=== PATIENT | female | born 1970 | race Caucasian/White ===

== ENCOUNTER 2016-10-17 12:34 | Emergency (ER) | payer MEDICAID ==
[~2016-10-17] VITALS: Ht 170.2 cm; Wt 75.0 kg
[~2016-10-17 12:34] MED LIST: BACT800T5 PO; CLON0.2T PO; CLON1 PO; FIORIC PO; FLAG500T PO; LACT20SO4 PO; MORP30SU PO; PHEN100 PO; PROM25TA5 PO; PROT40TA PO; SPIR50TA21 PO; TOPR100T15 PO; ZOFR4TAB3 SL
[2016-10-17 12:36] VITALS: BP 178/97; PULSE 82; RESP 15; TEMP 98.2; O2SAT 98
--- NOTE | 2016-10-17 13:47 | PD ---
HPI Chief Complaint: Psychiatric Symptoms Time Seen by Provider: 13:25 Travel History International Travel<30 days: No Contact w/Intl Traveler<30days: Yes Name of Country Traveled to: mom who went to [facility] lives with her and had N/V/D Traveled to known affect area: No History of Present Illness HPI 46-year-old female presents for evaluation of possible parasitic infection. She reports that in August she ate a lump overall beef because she likes the taste of raw beef. She reports that over the past few months she believes that she has seen worms in her stool, in her mouth and in her eyes. She reports that there are white in color. She reports that she had an episode of emesis recently which she vomited "thousands of eggs." She reports occasional abdominal pain as well. She reports that she has been having diarrhea which she says is secondary to doing a stool cleansing. She has used over-the- counter pinworm treatment medication but symptoms have persisted. She has seen her primary care physician as well as an outside emergency room for evaluation of this issue. Her mother who is with her says that she has seen worms as well. She denies any thoughts of harming herself or anyone else. She denies any hallucinations, drug or alcohol use. No other complaints. PFSH Past Medical History Arthritis: Yes (RA AND FIBROMYALGIA) Asthma: No Autoimmune Disease: Yes Anxiety: Yes Depression: Yes Heart Rhythm Problems: No Cancer: Yes (CERVICAL CA) Cardiovascular Problems: Yes High Cholesterol: No Chest Pain: Yes Congestive Heart Failure: No Cirrhosis: Yes COPD: Yes Cerebrovascular Accident: Yes (TIA 12/2014) Diabetes: No Diminished Hearing: No Endocrine: No Fibromyalgia: Yes Gastrointestinal Disorders: Yes (GASTROPROESIS) GERD: Yes Genitourinary: Yes Headaches: No Hepatitis: Yes (HEPATITIS C ) Hiatal Hernia: No Heparin Induced Thrombocytopen: No Hypertension: Yes Immune Disorder: Yes (FIBROPMYALGIA, RHEUMATOID ARTHRITIS ) Implanted Vascular Access Dvce: No Medical other: No Musculoskeletal: Yes Neurologic: Yes (possibl seizure) Psychiatric: Yes Reproductive: Yes Respiratory: Yes (COPD) Migraines: No Pancreatitis: Yes Renal Failure: Yes Seizures: Yes Sickle Cell Disease: No Sleep Apnea: No Thyroid Disease: No Ulcer: No ?: Not Menopausal: Yes : 2 Para: 1 Miscarriage: 2 : 3 Past Surgical History Abdominal Surgery: Yes AICD: No Body Medical Devices: "CLIP" FOLLOWING CARMELA Cardiac Surgery: No Cholecystectomy: Yes Ear Surgery: No Endocrine Surgery: No Eye Surgery: No Genitourinary Surgery: No Gynecologic Surgery: Yes (HYSTERECTOMY ) Hysterectomy: Yes Joint Replacement: No Neurologic Surgery: No Oral Surgery: No Pacemaker: No Thoracic Surgery: No Other Surgery: Yes (BILATERAL CARPAL TUNNEL RELEASE) Social History Alcohol Use: No Tobacco Use: Yes (1/2 PPD) Substance Use: Yes (shoot pills) Allergies-Medications (Allergen,Severity, Reaction): Coded Allergies: Augmentin (Verified Allergy, Severe, 12/15/15) Compazine (Verified Allergy, Severe, JAWS LOCK UP, 12/15/15) Levaquin (Verified Allergy, Severe, 12/15/15) "GETS ALL MY DRUGS MESSED UP" Penicillin (Verified Allergy, Severe, ANAPHYLACTIC, 12/15/15) Reglan (Verified Allergy, Severe, JAWS LOCK UP, 12/15/15) Tetanus Toxoid (Verified Allergy, Severe, MUSCLES LOCKED UP, 12/15/15) Vancomycin (Verified Allergy, Severe, COULDN'T BREATH, 12/15/15) THROAT CLOSED; UNABLE TO SWALLOW Tylenol (Verified Adverse Reaction, Severe, CONTRAINDICATED DUE TO HEP C AND CIRROHSIS, 12/15/15) Reported Meds & Prescriptions Reported Meds & Active Scripts Active Zofran ODT (Ondansetron HCl) 4 Mg Tab 4 Mg SL Q6H PRN FOR NAUSEA/VOMITING Bactrim DS (Sulfamethoxazole-Trimethoprim DS) 1 Tab Tab 1 Tab PO BID 10 Days Flagyl (Metronidazole) 500 Mg Tab 500 Mg PO TID 3 Days Zofran ODT (Ondansetron HCl) 4 Mg Tab 4 Mg SL Q6H PRN FOR NAUSEA/VOMITING Reported Spironolactone 50 Mg Tab 50 Mg PO BID Toprol XL (Metoprolol Succinate) 100 Mg Roya 100 Mg PO DAILY Dilantin 100 Mg Kapseals (Phenytoin Sodium) 100 Mg Caper 100 Mg PO TID Phenergan 25 mg (Promethazine HCl) 25 Mg Tab 25 Mg PO Q6H PRN Klonopin (Clonazepam) 1 Mg Tab 1 Mg PO TID Lactulose 30 Ml Syrp 30 Ml PO DAILY PRN Fioricet Tab (Acetaminophen/Butalbital/Caffeine) 1 Tab Tab 1 Tab PO Q4-6H PRN Clonidine Hcl (Clonidine HCl) 0.2 Mg Tab 0.2 Mg PO PRN TAKE IF DIASTOLIC GREATER THAN 100 Protonix (Pantoprazole Sodium) 40 Mg Tab 40 Mg PO DAILY Msir (Morphine Sulfate) 30 Mg Tab 60 Mg PO TID Review of Systems Except as stated in HPI: all other systems reviewed are Neg Physical Exam Narrative GENERAL: Well-developed well-nourished female in no acute distress SKIN: Warm and dry. HEAD: Atraumatic. Normocephalic. EYES: Pupils equal and round reactive to light, no worms. No scleral icterus. No injection or drainage. ENT: No nasal bleeding or discharge. Mucous membranes pink and moist. NECK: Trachea midline. No JVD. CARDIOVASCULAR: Regular rate and rhythm. No murmur appreciated. RESPIRATORY: No accessory muscle use. Clear to auscultation. Breath sounds equal bilaterally. GASTROINTESTINAL: Abdomen soft, non-tender, nondistended. Hepatic and splenic margins not palpable. Rectal examination performed in the presence of a nurse: No obvious worms are noted. MUSCULOSKELETAL: No obvious deformities. No clubbing. No cyanosis. No edema. NEUROLOGICAL: Awake and alert. No obvious cranial nerve deficits. Motor grossly within normal limits. Normal speech. PSYCHIATRIC: Appropriate mood and affect; insight and judgment normal. Data Data Last Documented VS Vital Signs Date Time Temp Pulse Resp B/P Pulse Ox O2 Delivery O2 Flow Rate FiO2 10/17/16 12:36 98.2 82 15 178/97 98 Orders MDM Medical Decision Making Medical Screen Exam Complete: Yes Emergency Medical Condition: Yes Medical Record Reviewed: Yes Differential Diagnosis Delusions versus parasitic infection versus pinworms Narrative Course 46-year-old female presents for evaluation of possible widespread parasitic infection. She believes that she has seen worms in her stool, vomit, mouth, eyes as well as eggs. Physical examination is essentially unremarkable. Her symptoms could be secondary to delusional parasitosis versus parasitic infection. I offered to perform basic lab work and stool over and parasite test over the patient reports that she does not have to go to the bathroom right now and shortly after examination she was attempting to walk out the emergency room. I don't believe that this patient meets hernandez act criteria. The patient will be given a prescription for outpatient stool and parasite testing. She is stable for discharge. Diagnosis Primary Impression: Fear of parasites Referrals: [facility] Additional Instructions: Obtain outpatient stool ova and parasite testing as discussed. Follow up with your primary care physician or a different primary care physician such as [facility]. Return for any emergent medical conditions. Med/Other Pt SpecificInfo: No Change to Meds Disposition: DISCHARGE HOME Condition: Alek Santana Oct 17, 2016 13:47 Med/Other Pt SpecificInfo: No Change to Meds Disposition: DISCHARGE HOME Condition: Alek Santana Oct 17, 2016 13:47
== END 2016-10-17 14:52 | disposition home or self-care (01) ==
LOC: NEPD 12:34
DX: F40.218 Other animal type phobia (principal); F41.9 Anxiety disorder, unspecified; J44.9 Chronic obstructive pulmonary disease, unspecified; K21.9 Gastro-esophageal reflux disease without esophagitis
CPT/HCPCS: 99281

== ENCOUNTER 2016-12-29 11:34 | Emergency (ER) | payer MEDICAID ==
[~2016-12-29] VITALS: Ht 170.2 cm; Wt 75.0 kg
[2016-12-29 11:48] VITALS: BP 124/74; PULSE 78; RESP 19; TEMP 98.8; O2SAT 97
[2016-12-29] MEDS ORDERED: SODIUM CHLORIDE 0.9% FLUSH 10 ML FLUSH IV FLUSH PRN (12:30)
--- NOTE | 2016-12-29 12:30 | PD ---
HPI Chief Complaint: Abdominal Pain Time Seen by Provider: 12:19 Travel History International Travel<30 days: No Contact w/Intl Traveler<30days: No Traveled to known affect area: No History of Present Illness HPI 36 year-old female with history of remote CVA, seizure disorder, pancreatitis, anxiety, hepatitis C, presents to emergency department for evaluation of multiple genital complaints. 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 She states that she was seen and evaluated at [facility] and they told her that she has a cellulitis on her right buttock. She states to give her antibiotic for this. She is concerned about having bugs crawling in her mouth and a thrush infection. She is also reports abdominal pain and she believes that her liver is failing. She denies any recent illnesses, fever, chills. She has no other symptoms to report. PFSH Past Medical History Arthritis: Yes (RA AND FIBROMYALGIA) Asthma: No Autoimmune Disease: Yes Anxiety: Yes Depression: Yes Heart Rhythm Problems: No Cancer: Yes (CERVICAL CA) Cardiovascular Problems: Yes High Cholesterol: No Chest Pain: Yes Congestive Heart Failure: No Cirrhosis: Yes COPD: Yes Cerebrovascular Accident: Yes (TIA 12/2014) Diabetes: No Diminished Hearing: No Endocrine: No Fibromyalgia: Yes Gastrointestinal Disorders: Yes (GASTROPROESIS) GERD: Yes Genitourinary: Yes Headaches: No Hepatitis: Yes (HEPATITIS C ) Hiatal Hernia: No Heparin Induced Thrombocytopen: No Hypertension: Yes Immune Disorder: Yes (FIBROPMYALGIA, RHEUMATOID ARTHRITIS ) Implanted Vascular Access Dvce: No Musculoskeletal: Yes Neurologic: Yes (possibl seizure) Psychiatric: Yes Reproductive: Yes Respiratory: Yes (COPD) Migraines: No Pancreatitis: Yes Renal Failure: Yes Seizures: Yes Sickle Cell Disease: No Sleep Apnea: No Thyroid Disease: No Ulcer: No ?: Not Menopausal: Yes : 2 Para: 1 Miscarriage: 2 : 3 Past Surgical History Abdominal Surgery: Yes AICD: No Body Medical Devices: "CLIP" FOLLOWING CARMELA Cardiac Surgery: No Cholecystectomy: Yes Ear Surgery: No Endocrine Surgery: No Eye Surgery: No Genitourinary Surgery: No Gynecologic Surgery: Yes (HYSTERECTOMY ) Hysterectomy: Yes Joint Replacement: No Neurologic Surgery: No Oral Surgery: No Pacemaker: No Thoracic Surgery: No Other Surgery: Yes (BILATERAL CARPAL TUNNEL RELEASE) Social History Alcohol Use: No Tobacco Use: Yes (1/2 PPD) Substance Use: Yes (shoot pills) Allergies-Medications (Allergen,Severity, Reaction): Coded Allergies: amoxicillin (Unverified Allergy, Severe, 12/29/16) clavulanic acid (Unverified Allergy, Severe, 12/29/16) levofloxacin (Unverified Allergy, Severe, 12/29/16) "GETS ALL MY DRUGS MESSED UP" metoclopramide (Unverified Allergy, Severe, JAWS LOCK UP, 12/29/16) penicillin G (Unverified Allergy, Severe, ANAPHYLACTIC, 12/29/16) prochlorperazine (Unverified Allergy, Severe, JAWS LOCK UP, 12/29/16) tetanus toxoid, adsorbed (Unverified Allergy, Severe, MUSCLES LOCKED UP, 12/29/16) vancomycin (Unverified Allergy, Severe, COULDN'T BREATH, 12/29/16) THROAT CLOSED; UNABLE TO SWALLOW acetaminophen (Unverified Adverse Reaction, Severe, CONTRAINDICATED DUE TO HEP C AND CIRROHSIS, 12/29/16) Reported Meds & Prescriptions Reported Meds & Active Scripts Active Reported Fioricet (Lldgbsbgdn-Niyyarhxnizhv-Aljcivvj) 50-300-40 Mg Cap 1 Cap PO Q4H PRN Lactulose Liq (Lactulose) 10 Gm/15 Ml Soln 30 Ml PO BID PRN Senokot (Sennosides) 8.6 Mg Tab 8.6 Mg PO DAILY PRN Diphenhydramine (Diphenhydramine HCl) 25 Mg Tab 50 Mg PO Q6H PRN Clonidine (Clonidine HCl) 0.1 Mg Tab 0.1 Mg PO DAILY PRN Aldactone (Spironolactone) 50 Mg Tab 50 Mg PO DAILY Toprol XL (Metoprolol Succinate) 100 Mg Tab 100 Mg PO DAILY Pepcid (Famotidine) 40 Mg Tab 40 Mg PO DAILY Zofran (Ondansetron HCl) 4 Mg Tab 4 Mg PO Q6HR PRN Phenergan (Promethazine HCl) 25 Mg Tablet 25 Mg PO Q6H PRN Clonazepam 1 Mg Tab 1 Mg PO QID Morphine IR (Morphine Sulfate) 30 Mg Tab 60 Mg PO TID Morphine ER (Morphine Sulfate) 60 Mg Tab 60 Mg PO Q8H Review of Systems Except as stated in HPI: all other systems reviewed are Neg Physical Exam Narrative GENERAL: Well-nourished female patient ambulatory, with bizarre affect, but in no acute distress SKIN: Focused skin assessment warm/dry. HEAD: Atraumatic. Normocephalic. EYES: Pupils large and round. Reactive No scleral icterus. No injection or drainage. ENT: No nasal bleeding or discharge. Mucous membranes pink and moist. NECK: Trachea midline. No JVD. CARDIOVASCULAR: Regular rate and rhythm. No murmur appreciated. RESPIRATORY: No accessory muscle use. Clear to auscultation. Breath sounds equal bilaterally. GASTROINTESTINAL: Abdomen soft, rotund, nontender on stethoscope examination, however tenderness with palpation, inconsistent, and generalized. MUSCULOSKELETAL: No obvious deformities. No clubbing. No cyanosis. No edema. NEUROLOGICAL: Awake and alert. No obvious cranial nerve deficits. Motor grossly within normal limits. Normal speech. Data Data Last Documented VS Vital Signs Date Time Temp Pulse Resp B/P (MAP) Pulse Ox O2 Delivery O2 Flow Rate FiO2 12/29/16 15:35 12/29/16 15:00 75 17 97 Room Air 12/29/16 11:48 98.8 Orders Orders Complete Blood Count With Diff (12/29/16 12:30) Comprehensive Metabolic Panel (12/29/16 12:30) Lipase (12/29/16 12:30) Prothrombin Time / Inr (Pt) (12/29/16 12:30) Act Partial Throm Time (Ptt) (12/29/16 12:30) Urinalysis - C+S If Indicated (12/29/16 12:30) Iv Access Insert/Monitor (12/29/16 12:30) Ecg Monitoring (12/29/16 12:30) Oximetry (12/29/16 12:30) Sodium Chloride 0.9% Flush (Ns Flush) (12/29/16 12:30) Electrocardiogram (12/29/16 12:30) Ammonia (12/29/16 12:30) Ketorolac Inj (Toradol Inj) (12/29/16 13:45) Sodium Chlor 0.9% 1000 Ml Inj (Ns 1000 M (12/29/16 13:45) Ondansetron Inj (Zofran Inj) (12/29/16 13:45) Labs Laboratory Tests Test 12/29/16 12:45 12/29/16 13:30 White Blood Count 4.1 TH/MM3 Red Blood Count 4.78 MIL/MM3 Hemoglobin 10.5 GM/DL Hematocrit 33.4 % Mean Corpuscular Volume 69.8 FL Mean Corpuscular Hemoglobin 22.0 PG Mean Corpuscular Hemoglobin Concent 31.5 % Red Cell Distribution Width 14.7 % Platelet Count 122 TH/MM3 Mean Platelet Volume 10.3 FL Neutrophils (%) (Auto) 53.8 % Lymphocytes (%) (Auto) 34.0 % Monocytes (%) (Auto) 9.5 % Eosinophils (%) (Auto) 2.2 % Basophils (%) (Auto) 0.5 % Neutrophils # (Auto) 2.2 TH/MM3 Lymphocytes # (Auto) 1.4 TH/MM3 Monocytes # (Auto) 0.4 TH/MM3 Eosinophils # (Auto) 0.1 TH/MM3 Basophils # (Auto) 0.0 TH/MM3 CBC Comment DIFF FINAL Differential Comment Prothrombin Time 10.8 SEC Prothromb Time International Ratio 1.0 RATIO Activated Partial Thromboplast Time 28.6 SEC Blood Urea Nitrogen 3 MG/DL Creatinine 0.76 MG/DL Random Glucose 109 MG/DL Total Protein 7.5 GM/DL Albumin 2.8 GM/DL Calcium Level 8.8 MG/DL Alkaline Phosphatase 52 U/L Aspartate Amino Transf (AST/SGOT) 28 U/L Alanine Aminotransferase (ALT/SGPT) 23 U/L Total Bilirubin 0.2 MG/DL Sodium Level 140 MEQ/L Potassium Level 3.9 MEQ/L Chloride Level 104 MEQ/L Carbon Dioxide Level 29.3 MEQ/L Anion Gap 7 MEQ/L Estimat Glomerular Filtration Rate 82 ML/MIN Ammonia LESS THAN 10 MCMOL/L Lipase 110 U/L Urine Color LIGHT-YELLOW Urine Turbidity CLEAR Urine pH 5.0 Urine Specific Banks 1.005 Urine Protein NEG mg/dL Urine Glucose (UA) NEG mg/dL Urine Ketones NEG mg/dL Urine Occult Blood NEG Urine Nitrite NEG Urine Bilirubin NEG Urine Urobilinogen LESS THAN 2.0 MG/DL Urine Leukocyte Esterase TRACE Urine RBC 1 /hpf Urine WBC 2 /hpf Urine Squamous Epithelial Cells 1 /hpf Urine Hyaline Casts 2 /lpf Urine Mucus FEW /lpf Microscopic Urinalysis Comment CULT NOT INDICATED MDM Medical Decision Making Medical Screen Exam Complete: Yes Emergency Medical Condition: Yes Medical Record Reviewed: Yes Differential Diagnosis Pancreatitis versus gastritis versus indigestion versus chronic abdominal pain versus mood disorder versus personality disorder versus adjustment reaction disorder Narrative Course 46-year-old female presents to the emergency department for evaluation. Patient has very bizarre affect. She is insistent that she has forms all over her body inside and out. [facility] for concern that she may have worms and was treated empirically. Patient's abdomen is soft. It is inconsistently tender on exam. Laboratory Tests Test 12/29/16 12:45 12/29/16 13:30 White Blood Count 4.1 TH/MM3 Red Blood Count 4.78 MIL/MM3 Hemoglobin 10.5 GM/DL Hematocrit 33.4 % Mean Corpuscular Volume 69.8 FL Mean Corpuscular Hemoglobin 22.0 PG Mean Corpuscular Hemoglobin Concent 31.5 % Red Cell Distribution Width 14.7 % Platelet Count 122 TH/MM3 Mean Platelet Volume 10.3 FL Neutrophils (%) (Auto) 53.8 % Lymphocytes (%) (Auto) 34.0 % Monocytes (%) (Auto) 9.5 % Eosinophils (%) (Auto) 2.2 % Basophils (%) (Auto) 0.5 % Neutrophils # (Auto) 2.2 TH/MM3 Lymphocytes # (Auto) 1.4 TH/MM3 Monocytes # (Auto) 0.4 TH/MM3 Eosinophils # (Auto) 0.1 TH/MM3 Basophils # (Auto) 0.0 TH/MM3 CBC Comment DIFF FINAL Differential Comment Prothrombin Time 10.8 SEC Prothromb Time International Ratio 1.0 RATIO Activated Partial Thromboplast Time 28.6 SEC Blood Urea Nitrogen 3 MG/DL Creatinine 0.76 MG/DL Random Glucose 109 MG/DL Total Protein 7.5 GM/DL Albumin 2.8 GM/DL Calcium Level 8.8 MG/DL Alkaline Phosphatase 52 U/L Aspartate Amino Transf (AST/SGOT) 28 U/L Alanine Aminotransferase (ALT/SGPT) 23 U/L Total Bilirubin 0.2 MG/DL Sodium Level 140 MEQ/L Potassium Level 3.9 MEQ/L Chloride Level 104 MEQ/L Carbon Dioxide Level 29.3 MEQ/L Anion Gap 7 MEQ/L Estimat Glomerular Filtration Rate 82 ML/MIN Ammonia LESS THAN 10 MCMOL/L Lipase 110 U/L Urine Color LIGHT-YELLOW Urine Turbidity CLEAR Urine pH 5.0 Urine Specific Banks 1.005 Urine Protein NEG mg/dL Urine Glucose (UA) NEG mg/dL Urine Ketones NEG mg/dL Urine Occult Blood NEG Urine Nitrite NEG Urine Bilirubin NEG Urine Urobilinogen LESS THAN 2.0 MG/DL Urine Leukocyte Esterase TRACE Urine RBC 1 /hpf Urine WBC 2 /hpf Urine Squamous Epithelial Cells 1 /hpf Urine Hyaline Casts 2 /lpf Urine Mucus FEW /lpf Microscopic Urinalysis Comment CULT NOT INDICATED Lab work is without acute concern. 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 Patient agrees to return immediately with any acute worsening symptoms. Diagnosis Primary Impression: Abdominal pain Qualified Codes: R10.31 - Right lower quadrant pain Additional Impressions: History of cirrhosis of liver Fear of parasites Referrals: [facility] Primary Care Physician Patient Instructions: Abdominal Pain (ED), General Instructions Additional Instructions: Follow-up with your primary care provider Seek gastroenterology evaluation Return immediately with any acute worsening of symptoms Med/Other Pt SpecificInfo: No Change to Meds Disposition: 01 DISCHARGE HOME Condition: Stable Aishwarya Salomon Dec 29, 2016 12:30
[2016-12-29 12:48] VITALS: O2SAT 98
[2016-12-29 13:04] LABS: AUTOMATED NEUTROPHIL # 2.2 TH/MM3 (1.8-7.7); BASOPHIL % 0.5 % (0.0-2.0); EOSINOPHIL # 0.1 TH/MM3 (0-0.4); EOSINOPHIL % 2.2 % (0.0-4.0); HEMATOCRIT 33.4 % (35.0-46.0); HEMO FLAGS DIFF FINAL; LYMPHOCYTE # 1.4 TH/MM3 (1.0-4.8); MEAN CELL VOLUME 69.8 FL (80.0-100.0); MEAN CORPUSCULAR HGB CONC 31.5 % (32.0-36.0); MONO % 9.5 % (0.0-8.0); NEUT % 53.8 % (16.0-70.0); PLATELET COUNT 122 TH/MM3 (150-450); RED BLOOD COUNT 4.78 MIL/MM3 (4.00-5.30); RED CELL DISTRIBUTION WIDTH 14.7 % (11.6-17.2); WHITE BLOOD COUNT 4.1 TH/MM3 (4.0-11.0)
[2016-12-29 13:14] LABS: APTT (PATIENT) 28.6 SEC (24.3-30.1); PROTHROMBIN TIME - PATIENT 10.8 SEC (9.8-11.6)
[2016-12-29 13:20] LABS: ALT (GPT) 23 U/L (10-53); ANION GAP 7 MEQ/L (5-15); AST (GOT) 28 U/L (15-37); BICARBONATE 29.3 MEQ/L (21.0-32.0); CHLORIDE 104 MEQ/L (98-107); GLOMERULAR FILTRATION RATE 82 ML/MIN (>89); POTASSIUM 3.9 MEQ/L (3.5-5.1); SODIUM (NA) 140 MEQ/L (136-145)
[2016-12-29 13:21] LABS: ALKALINE PHOSPHATASE 52 U/L (45-117); TOTAL BILIRUBIN ADULT 0.2 MG/DL (0.2-1.0)
[2016-12-29 13:22] LABS: BLOOD UREA NITROGEN 3 MG/DL (7-18)
[2016-12-29] MEDS ORDERED: MSIR30 PO (13:23)
[2016-12-29] MEDS ORDERED: SENO8.6T5 PO (13:23)
[2016-12-29] MEDS ORDERED: ZOFR4TAB PO (13:23)
[2016-12-29] MEDS ORDERED: DIPH25TA2 PO (13:23)
[2016-12-29] MEDS ORDERED: PROM25TA10 PO (13:23)
[2016-12-29] MEDS ORDERED: ALDA50TA2 PO (13:23)
[2016-12-29] MEDS ORDERED: CLON0.1T PO (13:23)
[2016-12-29] MEDS ORDERED: FAMO1TAB73 PO (13:23)
[2016-12-29] MEDS ORDERED: TOPR100T PO (13:23)
[2016-12-29] MEDS ORDERED: LACT10SO PO (13:23)
[2016-12-29] MEDS ORDERED: MORP1TAB26 PO (13:23)
[2016-12-29] MEDS ORDERED: CLON1TAB PO (13:23)
[2016-12-29] MEDS ORDERED: BUTA1CAP PO (13:23)
[2016-12-29] MEDS ORDERED: KETOROLAC TROMETHAMINE 30 MG/ML (IVP) VIAL IV PUSH ONE (13:45)
[2016-12-29] MEDS ORDERED: SODIUM CHLOR 0.9% 1000 ML INJ 1,000 ML IV ONE (13:45)
[2016-12-29] MEDS ORDERED: ONDANSETRON HCL 4 MG/2 ML VIAL IV PUSH ONE (13:45)
[2016-12-29 13:52] LABS: BLOOD, URINE NEG (NEG); COMMENT (UR) CULT NOT INDICATED; CULTURE IF INDICATED CULT NOT INDICATED; GLUCOSE,URINE NEG (NEG); HYALINE CAST, URINE 2 /lpf (RARE); KETONE, URINE NEG (NEG); MUCUS URINE FEW /lpf (OCC); NITRITE,URINE NEG (NEG); SQUAMOUS EPITHELIAL CELL URINE 1 /hpf (0-5); URINE COLOR LIGHT-YELLOW (YELLW/STRAW)
[2016-12-29 15:00] VITALS: BP 120/72; PULSE 75; RESP 17; O2SAT 97
--- NOTE | 2016-12-30 08:39 | EKG ---
Date Performed: 12/29/2016 Time Performed: 12:55:58 PTAGE: 46 years EKG: Sinus rhythm NORMAL ECG PREVIOUS TRACING : 12/16/2015 02.45 No significant change from previous tracing noted. DOCTOR: Pedro Luis Vega Interpretating Date/Time 12/30/2016 08:37:47
== END 2016-12-29 15:37 | disposition home or self-care (01) ==
LOC: NEPC 11:34
DX: R10.31 Right lower quadrant pain (principal); K74.60 Unspecified cirrhosis of liver; F40.218 Other animal type phobia; I10 Essential (primary) hypertension; F17.200 Nicotine dependence, unspecified, uncomplicated; Z87.39 Personal history of other diseases of the musculoskeletal system and connective tissue; Z86.2 Personal history of diseases of the blood and blood-forming organs and certain disorders involving the immune mechanism; Z86.59 Personal history of other mental and behavioral disorders; Z85.41 Personal history of malignant neoplasm of cervix uteri; Z86.79 Personal history of other diseases of the circulatory system; Z87.09 Personal history of other diseases of the respiratory system; Z87.19 Personal history of other diseases of the digestive system; Z87.448 Personal history of other diseases of urinary system; Z86.19 Personal history of other infectious and parasitic diseases; Z86.69 Personal history of other diseases of the nervous system and sense organs
CPT/HCPCS: 80053; 81001; 82140; 83690; 85025; 85610; 85730; 93005; 96361; 96374; 96375; 99284; J1885; J2405; J7030

== ENCOUNTER 2017-10-28 18:08 | Emergency (ER) | payer MEDICAID ==
[~2017-10-28] VITALS: Ht 167.6 cm; Wt 72.5 kg
[~2017-10-28 18:08] MED LIST changes: +ALDA50TA2 PO; -BACT800T5 PO; +BUTA1CAP PO; +CLON0.1T PO; -CLON0.2T PO; -CLON1 PO; +CLON1TAB PO; +DIPH25TA2 PO; +FAMO1TAB73 PO; -FIORIC PO; -FLAG500T PO; +LACT10SO PO; -LACT20SO4 PO; +MORP1TAB26 PO; -MORP30SU PO; +MSIR30 PO; -PHEN100 PO; +PROM25TA10 PO; -PROM25TA5 PO; -PROT40TA PO; +SENO8.6T5 PO; -SPIR50TA21 PO; +TOPR100T PO; -TOPR100T15 PO; +ZOFR4TAB PO; -ZOFR4TAB3 SL
[2017-10-28 18:15] VITALS: BP 157/94; PULSE 117; RESP 16; TEMP 98.8; O2SAT 100
--- NOTE | 2017-10-28 20:52 | PD ---
HPI Chief Complaint: Abdominal Pain Time Seen by Provider: 20:26 Travel History International Travel<30 days: No Contact w/Intl Traveler<30days: No Traveled to known affect area: No History of Present Illness HPI 47-year-old female that presents to the ED for evaluation of multiple complaints. Main complaint appears to be related to her mouth and having tongue swelling. Per patient has had this for about 2 months. Per patient he feels like there is something in her tongue that gets swelling. Per patient it comes and goes. Per patient is not as bad now. Per patient when she was in triage she cannot open her mouth. She does have a history of depression hepatitis C as well as per patient cirrhosis and is currently on the transplant list at [facility] where she gets most of her care for the liver. She follows with a pain management and takes multiple pain medications. Per patient she is having a lot of abdominal pain. However this does not appear to be the main complaint. She also complains of multiple lesions to her arms and legs and she attributes this to infection from cellulitis and "parasites ". She states that she has been trying to follow an infectious disease doctor and per patient she has 7 different referrals to different infectious disease doctors but nobody will see her because of her insurance. She does have multiple allergies to different medications. She denies any chest pain or shortness of breath at this time. She states that her lymph nodes seem to be inflamed and she believes that she has an infection. She currently states her pain in her belly is 6 out of 10. Denies any bowel movement or urinary issues at this time. Of note patient has been here for similar in the past. PFSH Past Medical History Arthritis: Yes (RA AND FIBROMYALGIA) Asthma: No Autoimmune Disease: Yes Anxiety: Yes Depression: Yes Heart Rhythm Problems: No Cancer: Yes (CERVICAL CA) Cardiovascular Problems: Yes High Cholesterol: No Chest Pain: Yes Congestive Heart Failure: No Cirrhosis: Yes COPD: Yes Cerebrovascular Accident: Yes (TIA 12/2014) Diabetes: No Diminished Hearing: No Endocrine: No Fibromyalgia: Yes Gastrointestinal Disorders: Yes (GASTROPROESIS) GERD: Yes Genitourinary: Yes Headaches: No Hepatitis: Yes (HEPATITIS C ) Hiatal Hernia: No Heparin Induced Thrombocytopen: No Hypertension: Yes Immune Disorder: Yes (FIBROPMYALGIA, RHEUMATOID ARTHRITIS ) Implanted Vascular Access Dvce: No Medical other: No Musculoskeletal: Yes Neurologic: Yes (possibl seizure) Psychiatric: Yes Reproductive: Yes Respiratory: Yes (COPD) Migraines: No Pancreatitis: Yes Renal Failure: Yes Seizures: Yes (reported seizure today) Sickle Cell Disease: No Sleep Apnea: No Thyroid Disease: No Ulcer: No ?: Not Menopausal: Yes : 2 Para: 1 Miscarriage: 2 : 3 Past Surgical History Abdominal Surgery: Yes AICD: No Body Medical Devices: "CLIP" FOLLOWING [facility] Cardiac Surgery: No Cholecystectomy: Yes Ear Surgery: No Endocrine Surgery: No Eye Surgery: No Genitourinary Surgery: No Gynecologic Surgery: Yes (HYSTERECTOMY ) Hysterectomy: Yes Joint Replacement: No Neurologic Surgery: No Oral Surgery: No Pacemaker: No Thoracic Surgery: No Other Surgery: Yes (BILATERAL CARPAL TUNNEL RELEASE) Social History Alcohol Use: No Tobacco Use: Yes (/ PPD) Substance Use: Yes (hx of injection drugs) Allergies-Medications (Allergen,Severity, Reaction): Coded Allergies: amoxicillin (Unverified Allergy, Severe, 10/28/17) clavulanic acid (Unverified Allergy, Severe, 10/28/17) levofloxacin (Unverified Allergy, Severe, 10/28/17) "GETS ALL MY DRUGS MESSED UP" metoclopramide (Unverified Allergy, Severe, JAWS LOCK UP, 10/28/17) penicillin G (Unverified Allergy, Severe, ANAPHYLACTIC, 10/28/17) prochlorperazine (Unverified Allergy, Severe, JAWS LOCK UP, 10/28/17) tetanus toxoid, adsorbed (Unverified Allergy, Severe, MUSCLES LOCKED UP, 10/28/17) vancomycin (Unverified Allergy, Severe, COULDN'T BREATH, 10/28/17) THROAT CLOSED; UNABLE TO SWALLOW acetaminophen (Unverified Adverse Reaction, Severe, CONTRAINDICATED DUE TO HEP C AND CIRROHSIS, 10/28/17) Reported Meds & Prescriptions Reported Meds & Active Scripts Active Reported Fioricet (Fwrwmfpkuw-Kscujsvtcklzb-Mvcwpeow) 50-300-40 Mg Cap 1 Cap PO Q4H PRN Lactulose Liq (Lactulose) 10 Gm/15 Ml Soln 30 Ml PO BID PRN Senokot (Sennosides) 8.6 Mg Tab 8.6 Mg PO DAILY PRN Diphenhydramine (Diphenhydramine HCl) 25 Mg Tab 50 Mg PO Q6H PRN Clonidine (Clonidine HCl) 0.1 Mg Tab 0.1 Mg PO DAILY PRN Aldactone (Spironolactone) 50 Mg Tab 50 Mg PO DAILY Toprol XL (Metoprolol Succinate) 100 Mg Tab 100 Mg PO DAILY Pepcid (Famotidine) 40 Mg Tab 40 Mg PO DAILY Zofran (Ondansetron HCl) 4 Mg Tab 4 Mg PO Q6HR PRN Phenergan (Promethazine HCl) 25 Mg Tablet 25 Mg PO Q6H PRN Clonazepam 1 Mg Tab 1 Mg PO QID Morphine IR (Morphine Sulfate) 30 Mg Tab 60 Mg PO TID Morphine ER (Morphine Sulfate) 60 Mg Tab 60 Mg PO Q8H Review of Systems Except as stated in HPI: all other systems reviewed are Neg Physical Exam Narrative GENERAL: SKIN: Warm and dry. HEAD: Atraumatic. Normocephalic. EYES: Pupils equal and round 4 mm reactive to light and accommodation. No scleral icterus. No injection or drainage. ENT: No nasal bleeding or discharge. Mucous membranes pink and moist. Tongue is midline. No uvula deviation. She does have some white film to the tongue itself. Likely thrush. NECK: Trachea midline. No JVD. CARDIOVASCULAR: Regular rate and rhythm. No murmurs, S3, S4. RESPIRATORY: No accessory muscle use. Clear to auscultation. Breath sounds equal bilaterally. GASTROINTESTINAL: Abdomen soft, non-tender, slightly distended. Hepatic and splenic margins not palpable. MUSCULOSKELETAL: Extremities without clubbing, cyanosis, or edema. No obvious deformities. Full range of motion of the upper and lower extremities bilaterally. 2+ pulses bilaterally. NEUROLOGICAL: Awake and alert. No obvious cranial nerve deficits. Motor grossly within normal limits. Five out of 5 muscle strength in the arms and legs. Normal speech. PSYCHIATRIC: Appropriate mood and affect; insight and judgment normal. Data Data Last Documented VS Vital Signs Date Time Temp Pulse Resp B/P (MAP) Pulse Ox O2 Delivery O2 Flow Rate FiO2 10/28/17 18:15 98.8 117 16 157/94 (115) 100 Orders Orders Complete Blood Count With Diff (10/28/17 20:34) Comprehensive Metabolic Panel (10/28/17 20:34) Blood Culture (10/28/17 20:34) Lipase (10/28/17 20:34) Urinalysis - C+S If Indicated (10/28/17 20:34) Magnesium (Mg) (10/28/17 20:34) Ammonia (10/28/17 20:34) Thyroid Stimulating Hormone (10/28/17 20:34) Ct Brain W/O Iv Contrast(Rout) (10/28/17 20:34) Iv Access Insert/Monitor (10/28/17 20:34) Ecg Monitoring (10/28/17 20:34) Oximetry (10/28/17 20:34) Ct Soft Tiss Neck W Iv Cont (10/28/17 ) Iohexol 350 Inj (Omnipaque 350 Inj) (10/28/17 22:19) Labs Laboratory Tests Test 10/28/17 20:45 10/28/17 20:53 Urine Color Straw Urine Turbidity CLEAR Urine pH 5.0 Urine Specific [place] 1.004 Urine Protein NEG mg/dL Urine Glucose (UA) NEG mg/dL Urine Ketones NEG mg/dL Urine Occult Blood SMALL Urine Nitrite NEG Urine Bilirubin NEG Urine Urobilinogen LESS THAN 2 mg/dL Urine Leukocyte Esterase NEG Urine RBC 2 /hpf Urine WBC LESS THAN 1 /hpf Urine Bacteria OCC /hpf Microscopic Urinalysis Comment CULT NOT INDICATED White Blood Count 4.7 TH/MM3 Red Blood Count 5.66 MIL/MM3 Hemoglobin 12.6 GM/DL Hematocrit 39.1 % Mean Corpuscular Volume 69.1 FL Mean Corpuscular Hemoglobin 22.3 PG Mean Corpuscular Hemoglobin Concent 32.3 % Red Cell Distribution Width 14.6 % Platelet Count 118 TH/MM3 Mean Platelet Volume 9.5 FL Neutrophils (%) (Auto) 59.8 % Lymphocytes (%) (Auto) 31.1 % Monocytes (%) (Auto) 7.7 % Eosinophils (%) (Auto) 0.7 % Basophils (%) (Auto) 0.7 % Neutrophils # (Auto) 2.8 TH/MM3 Lymphocytes # (Auto) 1.5 TH/MM3 Monocytes # (Auto) 0.4 TH/MM3 Eosinophils # (Auto) 0.0 TH/MM3 Basophils # (Auto) 0.0 TH/MM3 CBC Comment DIFF FINAL Differential Comment Blood Urea Nitrogen 9 MG/DL Creatinine 0.97 MG/DL Random Glucose 88 MG/DL Total Protein 9.4 GM/DL Albumin 4.4 GM/DL Calcium Level 9.4 MG/DL Magnesium Level 2.0 MG/DL Alkaline Phosphatase 62 U/L Aspartate Amino Transf (AST/SGOT) 28 U/L Alanine Aminotransferase (ALT/SGPT) 31 U/L Total Bilirubin 0.4 MG/DL Sodium Level 138 MEQ/L Potassium Level 4.1 MEQ/L Chloride Level 102 MEQ/L Carbon Dioxide Level 26.8 MEQ/L Anion Gap 9 MEQ/L Estimat Glomerular Filtration Rate 62 ML/MIN Ammonia LESS THAN 10 MCMOL/L Lipase 166 U/L Thyroid Stimulating Hormone 3rd Gen 0.335 uIU/ML MDM Medical Decision Making Medical Screen Exam Complete: Yes Emergency Medical Condition: Yes Medical Record Reviewed: Yes Differential Diagnosis Tongue infection versus cellulitis versus obstruction versus sepsis versus cirrhosis versus intractable pain versus mass Narrative Course 47-year-old female that presents to the ED for evaluation of multiple complaints. Patient was properly examined and was found to have signs and symptoms of unclear etiology. I do not suspect any acute disease at this time but her main complaint does appear to be the mild. Her tongue does not appear to be overly swollen. She does appear to have some small bite-like lesions to her tongue and appears to be more possible thrush with what appears to be possible canker sore. Because of her complaints and her history cannot rule out acute disease. I do recommend some basic labs and imaging. The running of this note CTs have not been read yet. Case will be sent up to my attending pending disposition and plan. I suspect that she will likely be discharged as her physical exam is very reassuring. Her blood work so far has been okay with no sign of acute disease. Ricky Camejo Oct 28, 2017 20:52
[2017-10-28 21:06] LABS: AUTOMATED NEUTROPHIL # 2.8 TH/MM3 (1.8-7.7); BASOPHIL % 0.7 % (0.0-2.0); EOSINOPHIL % 0.7 % (0.0-4.0); HEMATOCRIT 39.1 % (35.0-46.0); HEMOGLOBIN 12.6 GM/DL (11.6-15.3); LYMPH % 31.1 % (9.0-44.0); LYMPHOCYTE # 1.5 TH/MM3 (1.0-4.8); MEAN CELL VOLUME 69.1 FL (80.0-100.0); MEAN CORPUSCULAR HEMOGLOBIN 22.3 PG (27.0-34.0); MEAN CORPUSCULAR HGB CONC 32.3 % (32.0-36.0); MEAN PLATELET VOLUME 9.5 FL (7.0-11.0); MONO % 7.7 % (0.0-8.0); MONOCYTE # 0.4 TH/MM3 (0-0.9); NEUT % 59.8 % (16.0-70.0); PLATELET COUNT 118 TH/MM3 (150-450); RED BLOOD COUNT 5.66 MIL/MM3 (4.00-5.30); RED CELL DISTRIBUTION WIDTH 14.6 % (11.6-17.2); WHITE BLOOD COUNT 4.7 TH/MM3 (4.0-11.0)
[2017-10-28 21:31] LABS: BACTERIA, URINE OCC /hpf; BILIRUBIN, URINE NEG (NEG); BLOOD, URINE SMALL (NEG); GLUCOSE,URINE NEG (NEG); KETONE, URINE NEG (NEG); NITRITE,URINE NEG (NEG); URINE COLOR Straw (YELLW/STRAW); URINE LEUKOCYTE ESTERASE NEG (NEG)
[2017-10-28 21:32] LABS: ALBUMIN 4.4 GM/DL (3.4-5.0); AST (GOT) 28 U/L (15-37); BICARBONATE 26.8 MEQ/L (21.0-32.0); BLOOD UREA NITROGEN 9 MG/DL (7-18); CALCIUM 9.4 MG/DL (8.5-10.1); CHLORIDE 102 MEQ/L (98-107); CREATININE 0.97 MG/DL (0.50-1.00); GLOMERULAR FILTRATION RATE 62 ML/MIN (>89); GLUCOSE,RANDOM 88 MG/DL (74-106); SODIUM (NA) 138 MEQ/L (136-145)
[2017-10-28 21:42] LABS: ALKALINE PHOSPHATASE 62 U/L (45-117); ALT (GPT) 31 U/L (10-53); TOTAL BILIRUBIN ADULT 0.4 MG/DL (0.2-1.0); TOTAL PROTEIN 9.4 GM/DL (6.4-8.2)
[2017-10-28] MEDS ORDERED: IOHEXOL 350 MG/ML 10 ML VIAL (for RAD DIAG) IVCONTRAST ONE (22:19)
--- NOTE | 2017-10-28 22:38 | RADRPT ---
EXAM DATE: 10/28/2017 10:07 PM EDT AGE/SEX: 47 years / Female INDICATIONS: Syncope. CLINICAL DATA: This is the patient's initial encounter. Patient reports that signs and symptoms have been present for 1 day and indicates a pain score of 4/10. MEDICAL/SURGICAL HISTORY: Cardiovascular disease. Hypertension. Cirrhosis. Carcinoma Cholecyste ctomy. Hysterectomy. RADIATION DOSE: 31.64 CTDI (mGy) [place] [facility] [place]. . TECHNIQUE: CT of the head without contrast. Using automated exposure control and adjustment of the mA and/or kV according to patient size, radiation dose was kept as low as reasonably achievable to ob tain optimal diagnostic quality images. DICOM format image data is available electronically for revi ew and comparison. FINDINGS: There is no evidence of acute cortical infarction, acute hemorrhage, mass effect or midline shift. Bi frontal atrophy is present. Posterior fossa structures are unremarkable. CONCLUSION: No evidence of acute intracranial pathology. No masses are identified. Bifrontal atrophy Electronically signed by: Hussain Ayala MD 10/28/2017 10:37 PM EDT
--- NOTE | 2017-10-28 22:41 | RADRPT ---
EXAM DATE: 10/28/2017 10:17 PM EDT AGE/SEX: 47 years / Female INDICATIONS: Swelling and pain. CLINICAL DATA: This is the patient's initial encounter. Patient reports that signs and symptoms have been present for 1 day and indicates a pain score of 4/10. MEDICAL/SURGICAL HISTORY: Cardiovascular disease. Hypertension. Cirrhosis. Carcinoma. Hysterect shakir. Cholecystectomy. RADIATION DOSE: 15.38 CTDI (mGy) COMPARISON: No prior exams available for comparison. TECHNIQUE: Helical acquisition was performed using a multirow detector CT scanner during the adminis tration of 55 ml Omnipaque 350 (iohexol) nonionic water-soluble contrast as a single exam dose. Usi ng automated exposure control and adjustment of the mA and/or kV according to patient size, radiation dose was kept as low as reasonably achievable to obtain optimal diagnostic quality images. DICOM fo rmat image data is available electronically for review and comparison. FINDINGS: Examination of the skull base demonstrates no evidence of deep infiltrating mucosal lesion. The oroph arynx, hypopharynx, glottic and subglottic airway demonstrate no abnormality. The submandibular gland s are prominent bilaterally but no discrete mass or stone is identified. Nonspecific rib 2 adenopathy is present bilaterally. The parotid glands appear normal. The thyroid gland demonstrates no abnormal ity. Lung apices are unremarkable CONCLUSION: 1. Mild nonspecific generalized enlargement of the submandibular glands bilaterally without evidence of stone or mass. Electronically signed by: Hussain Ayala MD 10/28/2017 10:39 PM EDT
--- NOTE | 2017-10-28 23:46 | PD ---
Physical Exam Narrative GENERAL: 47 y/o female in no apparent distress SKIN: Focused skin assessment warm/dry. HEAD: Atraumatic. Normocephalic. EYES: Pupils equal and round. No scleral icterus. No injection or drainage. ENT: No nasal bleeding or discharge. Mucous membranes pink and moist. NECK: Trachea midline CARDIOVASCULAR: Regular rate and rhythm. RESPIRATORY: No accessory muscle use. no increased effort MUSCULOSKELETAL: No obvious deformities. No clubbing. No cyanosis. NEUROLOGICAL: Awake and alert. No obvious cranial nerve deficits. Motor grossly within normal limits. Normal speech. PSYCHIATRIC: Appropriate mood and affect; insight and judgment normal. Data Data Last Documented VS Vital Signs Date Time Temp Pulse Resp B/P (MAP) Pulse Ox O2 Delivery O2 Flow Rate FiO2 10/28/17 23:46 10/28/17 18:15 98.8 117 16 100 Orders Orders Complete Blood Count With Diff (10/28/17 20:34) Comprehensive Metabolic Panel (10/28/17 20:34) Blood Culture (10/28/17 20:34) Lipase (10/28/17 20:34) Urinalysis - C+S If Indicated (10/28/17 20:34) Magnesium (Mg) (10/28/17 20:34) Ammonia (10/28/17 20:34) Thyroid Stimulating Hormone (10/28/17 20:34) Ct Brain W/O Iv Contrast(Rout) (10/28/17 20:34) Iv Access Insert/Monitor (10/28/17 20:34) Ecg Monitoring (10/28/17 20:34) Oximetry (10/28/17 20:34) Ct Soft Tiss Neck W Iv Cont (10/28/17 ) Iohexol 350 Inj (Omnipaque 350 Inj) (10/28/17 22:19) Ed Discharge Order (10/28/17 23:43) Labs Laboratory Tests Test 10/28/17 20:45 10/28/17 20:53 Urine Color Straw Urine Turbidity CLEAR Urine pH 5.0 Urine Specific [place] 1.004 Urine Protein NEG mg/dL Urine Glucose (UA) NEG mg/dL Urine Ketones NEG mg/dL Urine Occult Blood SMALL Urine Nitrite NEG Urine Bilirubin NEG Urine Urobilinogen LESS THAN 2 mg/dL Urine Leukocyte Esterase NEG Urine RBC 2 /hpf Urine WBC LESS THAN 1 /hpf Urine Bacteria OCC /hpf Microscopic Urinalysis Comment CULT NOT INDICATED White Blood Count 4.7 TH/MM3 Red Blood Count 5.66 MIL/MM3 Hemoglobin 12.6 GM/DL Hematocrit 39.1 % Mean Corpuscular Volume 69.1 FL Mean Corpuscular Hemoglobin 22.3 PG Mean Corpuscular Hemoglobin Concent 32.3 % Red Cell Distribution Width 14.6 % Platelet Count 118 TH/MM3 Mean Platelet Volume 9.5 FL Neutrophils (%) (Auto) 59.8 % Lymphocytes (%) (Auto) 31.1 % Monocytes (%) (Auto) 7.7 % Eosinophils (%) (Auto) 0.7 % Basophils (%) (Auto) 0.7 % Neutrophils # (Auto) 2.8 TH/MM3 Lymphocytes # (Auto) 1.5 TH/MM3 Monocytes # (Auto) 0.4 TH/MM3 Eosinophils # (Auto) 0.0 TH/MM3 Basophils # (Auto) 0.0 TH/MM3 CBC Comment DIFF FINAL Differential Comment Blood Urea Nitrogen 9 MG/DL Creatinine 0.97 MG/DL Random Glucose 88 MG/DL Total Protein 9.4 GM/DL Albumin 4.4 GM/DL Calcium Level 9.4 MG/DL Magnesium Level 2.0 MG/DL Alkaline Phosphatase 62 U/L Aspartate Amino Transf (AST/SGOT) 28 U/L Alanine Aminotransferase (ALT/SGPT) 31 U/L Total Bilirubin 0.4 MG/DL Sodium Level 138 MEQ/L Potassium Level 4.1 MEQ/L Chloride Level 102 MEQ/L Carbon Dioxide Level 26.8 MEQ/L Anion Gap 9 MEQ/L Estimat Glomerular Filtration Rate 62 ML/MIN Ammonia LESS THAN 10 MCMOL/L Lipase 166 U/L Thyroid Stimulating Hormone 3rd Gen 0.335 uIU/ML [facility] Supervised Visit with TOM: Yes Interpretation(s) Last [address] 10/28/172033 Signed Impressions: CONCLUSION: No evidence of acute intracranial pathology. No masses are identified. Bifront al atrophy Neck CT 10/28/17 0000 Signed Impressions: CONCLUSION: 1. Mild nonspecific generalized enlargement of the submandibular glands bilate rally without evidence of stone or mass. Narrative Course I, Dr. baer, have reviewed the advance practice practitioner's documentation and am in agreement, met with the patient face to face, made the diagnosis, and the medical decision making was done by me. *My assessment and Findings: 47-year-old female with multiple complaints over 2 months. She states she feels like her tongue gets intermittently swollen. No significant swelling now. CT with mild nonspecific gland swelling without stone. Lab work without emergent findings. Patient agrees to follow with her primary care physician. I got called away before I could complete return instructions and review them further with her and she elected to leave without this or her discharge instructions. Diagnosis Primary Impression: Abdominal pain Qualified Codes: R10.84 - Generalized abdominal pain Additional Impression: Mild tongue swelling Patient Instructions: General Instructions Med/Other Pt SpecificInfo: No Change to Meds Disposition: 01 DISCHARGE HOME Condition: Stable Shila Baer MD Oct 28, 2017 23:45
== END 2017-10-29 00:27 | disposition home or self-care (01) ==
LOC: NEPE 18:08
DX: R10.84 Generalized abdominal pain (principal); F17.200 Nicotine dependence, unspecified, uncomplicated; B19.20 Unspecified viral hepatitis C without hepatic coma; M79.7 Fibromyalgia; Z85.41 Personal history of malignant neoplasm of cervix uteri; Z79.899 Other long term (current) drug therapy
CPT/HCPCS: 70450; 70491; 80053; 81001; 82140; 83690; 83735; 84443; 85025; 87040; 99284; Q9967

== ENCOUNTER 2017-11-28 08:42 | Observation (INO) ==
--- NOTE | 2017-11-28 09:50 | CT ---
EXAM DATE: 11/28/2017 9:47 AM EDT AGE/SEX: 47 years / Female INDICATIONS: Cephalgia today. CLINICAL DATA: This is the patient's initial encounter. Patient reports that signs and symptoms have been present for 1 day and indicates a pain score of 10/10. MEDICAL/SURGICAL HISTORY: Stroke. Hypertension. Hepatitis C. encephalopathy None. RADIATION DOSE: 35.01 CTDI (mGy) [place] [facility]28/[place]. . TECHNIQUE: CT of the head without contrast. Using automated exposure control and adjustment of the mA and/or kV according to patient size, radiation dose was kept as low as reasonably achievable to ob tain optimal diagnostic quality images. DICOM format image data is available electronically for revi ew and comparison. FINDINGS: Cerebrum: The ventricles are normal for age. No evidence of midline shift, mass lesion, hemorrhage or acute infarction. No extraaxial fluid collections are seen. Posterior Fossa: The cerebellum and brainstem are intact. The 4th ventricle is midline. The cerebe llopontine angle is unremarkable. Extracranial: The visualized portion of the orbits is intact. Skull: The calvaria is intact. No evidence of skull fracture. CONCLUSION: 1. Stable negative noncontrast head CT Electronically signed by: Feng Tracy MD 11/28/2017 9:49 AM EDT
[2017-11-28 09:53] LABS: Baso % (Auto) 0.9 % (0.0-2.0); Eos # (Auto) 0.2 th/mm3 (0.0-0.4); Eos % (Auto) 3.3 % (0.0-4.0); Hematocrit 40.9 % (35.0-46.0); Hemoglobin 13.5 gm/dL (11.6-15.3); Lymph # (Auto) 2.4 th/mm3 (1.0-4.8); Lymph % (Auto) 53.5 % (9.0-44.0); Mean Corpuscular Hemoglobin 23.3 pg (27.0-34.0); Mean Corpuscular Volume 70.5 fL (80.0-100.0); Mono # (Auto) 0.3 th/mm3 (0.0-0.9); Mono % (Auto) 6.4 % (0.0-8.0); Neut # (Auto) 1.6 th/mm3 (1.8-7.7); Neut % (Auto) 35.9 % (16.0-70.0); Platelet Count 127 th/mm3 (150-450); Red Cell Distribution Width 15.8 % (11.6-17.2); White Blood Count 4.6 th/mm3 (4.0-11.0)
[2017-11-28 10:03] LABS: INR 1.1 Ratio; Prothrombin Time 10.9 sec (9.8-11.6)
[2017-11-28 10:05] LABS: Activated Partial Thrombo Time 25.9 sec (24.3-30.1)
[2017-11-28 10:17] LABS: Anion Gap 2 meq/L (5-15); Blood Urea Nitrogen 8 mg/dL (7-18); Carbon Dioxide 31.2 meq/L (21.0-32.0); Chloride 103 meq/L (98-107); Glomerular Filtration Rate 59 mL/min (>89); Glucose,Random 134 mg/dL (74-106); Sodium 136 meq/L (136-145)
[2017-11-28 10:18] LABS: Potassium 4.6 meq/L (3.5-5.1)
[2017-11-28] MEDS ORDERED: LORazepam 1 MG Tablet PO ONE (10:21)
--- NOTE | 2017-11-28 10:21 | XR ---
EXAM DATE: 11/28/2017 10:17 AM EDT AGE/SEX: 47 years / Female INDICATIONS: . Anterior chest pain for two days, pain and swelling left face and neck, short of chelsy th CLINICAL DATA: This is the patient's initial encounter. Patient reports that signs and symptoms have been present for 2 days and indicates a pain score of 10/10. MEDICAL/SURGICAL HISTORY: Cirrhosis. Hepatitis C. Hypertension. Liver failure, renal failure , blood clots, cardiovascular disease, scoliosis, coma x 6 Cholecystectomy. Hysterectomy. COMPARISON: [facility], XR CHEST PA AND LAT, 04/22/2017. . FINDINGS: PA and lateral views of the chest demonstrate the lungs to be symmetrically aerated without evidence of mass, infiltrate or effusion. The cardiomediastinal contours are unremarkable. Osseous structures are intact. CONCLUSION: No acute cardiopulmonary disease. Electronically signed by: Feng Tracy MD 11/28/2017 10:19 AM EDT
[2017-11-28 14:08] LABS: Creatine Kinase 43 U/L (26-192)
--- NOTE | 2017-11-28 14:29 | P.HPCA ---
History of Present Illness Primary Care Physician: Heather Crum Chief Complaint: Chest pain and headache History of Present Illness: 47 year old female with history of IVDA, RA, and hypertension presents to ER with multiple complaints, including chest pain, headache, muscle cramps, and worry about reported GI infection of parasites x2 years without treatment. Reports last week seen and evaluated at [facility] for chest pain and vomiting blood. States given Protonix and discharged home. Reports while at , heart would have "long pauses," but was discharged home without her heart being further evaluated. Vomiting blood has resolved. Onset chest pain "at least one week." Location left anterior chest and left inframammary area. Characteristics vary between squeezing, sharp, or dull pain. Dull pain constant, whereas the squeezing and sharp pain varies from seconds to minutes. Intermittent radiation to left shoulder and left upper arm. Associated symptoms include nausea, dyspnea, and diaphoresis. Occasionally certain movements make pain worse. Discomfort not affected by deep breathing. No known precipitating or relieving factors. Chest discomfort noticed more in evening hours. Onset of headache x1 week. History of migraines. No current headache. Discomfort occurs evening hours, location left frontal side and behind left eye. Characterized as sharp, shooting pain. No eye pain or vision lost. Intermittent green "floaters" during headaches. No nausea or other associated symptoms with headache. Concerned "neck artery blocked" and would like to have that evaluated. Also, developed left cheek and left side neck small bumps after receiving CT exam last week during ER visit and concerned headache and skin irritation related. Third complaint is bilateral feet cramping, severely, mostly in evening hours. Reports history of GI parasites x2 years, without treatment, stating "my primary doctor won't give me a referral to infectious disease doctor" and is worried history of IVDA and above symptoms all related to poor self care and parasites. Past cardiac testing-None. Family history noncontributory for early onset cardiovascular disease. - Diagnosis (1) Chest pain, atypical (2) H/O: hypertension (3) H/O intravenous drug use in remission (4) Tobacco abuse (5) H/O migraine (6) H/O anxiety disorder (7) Other chronic pain Review of Systems Constitutional: Reports fatigue, Reports lack of energy, Denies anorexia, Denies body ache(s), Denies chills, Denies fever(s) Eyes: Denies blurry vision, Denies change in vision, Denies double vision, Denies loss of vision, Denies pain Cardiovascular: Reports chest pain, Reports fast heart rate, Denies generalized swelling, Denies irregular heart rhythm, Denies leg sores, Denies leg swelling, Denies lightheadedness Comments: As stated above. Respiratory: Reports shortness of breath, Denies cough, Denies coughing up blood , Denies excessive phlegm production, Denies pain on inspiration, Denies pain with cough Gastrointestinal: Denies abdominal pain, Denies change in bowel habits, Denies change in stools, Denies difficulty swallowing, Denies vomiting, Denies vomiting blood Genitourinary: Denies abnormal vaginal bleeding Comments: History of hysterectomy Musculoskeletal: Reports neck pain, Denies muscle weakness, Denies numbness, Denies tingling Comments: as stated above Skin/Breast: Reports sores Comments: left side neck and left cheek small, painful, non drainage, non itchy bumps x1 week. Neurologic: Denies loss of vision, Denies seizure-like activity Psychiatric: Reports anxiety, Reports confusion, Reports difficulty concentrating, Denies change in appetite Hematologic/Lymphatic: Denies easy bleeding, Denies easy bruising PMFSH - History History Provided By: Patient - Medical History Medical History: Medical History (Last Updated 11/28/17 @ 14:52 by KEVIN Mkceon) Acute on chronic pancreatitis Anxiety Arthritis, rheumatoid COPD (chronic obstructive pulmonary disease) CVA (cerebral vascular accident) Cirrhosis Dyslexia Encephalopathy H/O: hysterectomy HTN (hypertension) Hx of hepatitis C Sinus pause TMJ (dislocation of temporomandibular joint) - Tobacco History Tobacco Use In Past 30 Days: Yes Smoking Status: Former smoker Tobacco Type: Cigarettes Packs Per Day: 0.5 (Decreased from 2 packs/day) Years Smoked: 30 - Alcohol History How Often Do You Have a Drink Containing Alcohol: Monthly or less - Substance Use History Substance History: Past History - Substance Use Type Heroin Status: Early Remission Route Used: Intravenously Last Used: few months ago Crack/Cocaine Type: cocaine Route Used: Inhalation Last Used: few months ago - Travel History History of Recent Travel: No Recent Travel in the [place] Within the Last 8 Weeks: No Recent Travel Out of the Country Within the Last 8 Weeks: No - Immunization History Tetanus Immunization: >5 Years Hx Influenza Vaccine This Season: No Medications and Allergies Active Medications: Active Medications Aspirin (Aspirin) 325 mg PO DAILY MAURILIO Nitroglycerin (Nitrostat Sl) 0.4 mg SL Q5M PRN PRN Reason: CHEST PAIN Sodium Chloride (Ns Flush) 2 ml IV.FLUSH UNSCH PRN PRN Reason: FLUSH AFTER USING IV ACCESS Sodium Chloride (Ns Flush) 2 ml IV.FLUSH BID MAURILIO Sodium Chloride (Ns Flush) 2 ml IV.FLUSH PRN PRN PRN Reason: FLUSH AFTER USING IV ACCESS Allergies Allergy/AdvReac Type Severity Reaction Status Date / Time amoxicillin Allergy Severe Unverified 10/28/17 20:36 clavulanic acid Allergy Severe Unverified 10/28/17 20:36 levofloxacin Allergy Severe Unverified 10/28/17 20:36 metoclopramide Allergy Severe JAWS LOCK Unverified 10/28/17 20:36 UP penicillin G Allergy Severe ANAPHYLACTI Unverified 10/28/17 20:36 C prochlorperazine Allergy Severe JAWS LOCK Unverified 10/28/17 20:36 UP tetanus toxoid, adsorbed Allergy Severe MUSCLES Unverified 10/28/17 20:36 LOCKED UP vancomycin Allergy Severe COULDN'T Unverified 10/28/17 20:36 BREATH acetaminophen AdvReac Severe CONTRAINDICATED Unverified 10/28/17 20:36 DUE TO HEP C AND CIRROHSIS Home Medications Medication Instructions Recorded Confirmed Type amlodipine [Norvasc] 5 mg PO HS 11/28/17 11/28/17 History clonazepam [Klonopin] 1 mg PO QID 11/28/17 11/28/17 History methadone [Dolophine] 10 mg PO TID PRN 11/28/17 11/28/17 History metoprolol succinate [Toprol XL] 100 mg PO DAILY 11/28/17 11/28/17 History morphine 250 mg PO TID 11/28/17 11/28/17 History ondansetron HCl [Zofran] 4 mg PO PRN 11/28/17 11/28/17 History promethazine [Phenergan] 25 mg IM PRN 11/28/17 11/28/17 History spironolactone 50 mg PO DAILY 11/28/17 11/28/17 History Exam Vital signs: Vital Signs 11/28/17 08:44 11/28/17 08:58 11/28/17 11:56 Temperature 98.6 F Pulse Rate 105 H 88 88 Respiratory Rate 18 18 Blood Pressure 192/107 H 176/100 H Pulse Oximetry 93 L 99 98 11/28/17 13:00 Temperature Pulse Rate 63 Respiratory Rate 18 Blood Pressure 137/79 Pulse Oximetry 97 Intake & Output 11/27/17 11/28/17 11/28/17 18:59 06:59 18:59 Weight 72.575 kg - Constitutional no acute distress, cooperative Comments: female who appears older than stated age in no acute distress, sleeping upon entering room. - Routine HEENT Exam Head: Present: normocephalic, atraumatic Eye: Present: EOMI, PERRL ENT: Present: mucous membranes moist. Absent: dentition normal - Routine Neck Exam Present: supple, full ROM. Absent: JVD, carotid bruit - Routine Chest/Breast/Axilla Exam Chest wall: Absent: tenderness - Routine Respiratory Exam Present: wheezes, diminished air movement - Routine Cardiovascular Exam Present: RRR. Absent: murmur, gallop, rubs - Routine Abdominal Exam Present: soft, normoactive bowel sounds. Absent: tenderness Comments: large round abdomen - Routine Extremities Exam Present: full ROM, pulses intact, normal capillary refill. Absent: edema - Routine Skin Exam Present: intact Comments: Multiple tattoos. - Routine Neurological Exam Present: alert, oriented X3, clonus, moving all extremities. Absent: altered mental status Slurred speech when attempts to talk fast. - Routine Psychiatric Exam Present: cooperative. Absent: normal affect, normal thought process, anxious Comments: Flat, bizarre affect. Questionable insight and judgement. Frequent redirection required, conversion difficult for her to maintain becomes distracted with different thoughts. Results 11/28/17 09:33 11/28/17 09:33 Cardiac Enzymes 11/28/17 11/28/17 Range/Units 09:33 12:50 Troponin I Less than 0.02 L Less than 0.02 L (0.02-0.05) ng/mL Coagulation 11/28/17 Range/Units 09:33 PT 10.9 (9.8-11.6) sec APTT 25.9 (24.3-30.1) sec CBC 11/28/17 Range/Units 09:33 WBC 4.6 (4.0-11.0) th/mm3 RBC 5.80 H (4.00-5.30) mil/mm3 Hgb 13.5 (11.6-15.3) gm/dL Hct 40.9 (35.0-46.0) % Plt Count 127 L (150-450) th/mm3 Neut # (Auto) 1.6 L (1.8-7.7) th/mm3 Lymph # (Auto) 2.4 (1.0-4.8) th/mm3 [place] # (Auto) 0.3 (0.0-0.9) th/mm3 Eos # (Auto) 0.2 (0.0-0.4) th/mm3 Baso # (Auto) 0.0 (0.0-0.2) th/mm3 Comprehensive Metabolic Panel 11/28/17 Range/Units 09:33 Sodium 136 (136-145) meq/L Potassium 4.6 (3.5-5.1) meq/L Chloride 103 (98-107) meq/L Carbon Dioxide 31.2 (21.0-32.0) meq/L BUN 8 (7-18) mg/dL Creatinine 1.00 (0.50-1.00) mg/dL Calcium 9.0 (8.5-10.1) mg/dL Intake and Output 11/27/17 11/28/17 11/28/17 22:59 06:59 14:59 Other: Weight 72.575 kg Patient Weight 11/29/17 06:59 Weight 72.575 kg EKG interpretations - EKG EKG results cardiology: WNL, sinus rhythm, normal axis, normal QRS Caprini VTE Risk Assessment Caprini VTE Risk Assessment: No/Low Risk (score <= 1) Caprini Risk Assessment Model: Point Value = 1 Point Value = 2 Point Value = 3 Point Value = 5 Age 41-60 Minor surgery BMI > 25 kg/m2 Swollen legs Varicose veins or History of unexplained or recurrent spontaneous Oral contraceptives or hormone replacement Sepsis (< 1 month) Serious lung disease, including pneumonia (< 1 month) Abnormal pulmonary function Acute myocardial infarction Congestive heart failure (< 1 month) History of inflammatory bowel disease Medical patient at bed rest Age 61-74 Arthroscopic surgery Major open surgery (> 45 min) Laparoscopic surgery (> 45 min) Malignancy Confined to bed (> 72 hours) Immobilizing plaster cast Central venous access Age >= 75 History of VTE Family history of VTE Factor V Leiden Prothrombin [id number] Lupus anticoagulant Anticardiolipin antibodies Elevated serum homocysteine Heparin-induced thrombocytopenia Other congenital or acquired thrombophilia Stroke (< 1 month) Elective arthroplasty Hip, pelvis, or leg fracture Acute spinal cord injury (< 1 month) Prophylaxis Regimen: Total Risk Factor Score Risk Level Prophylaxis Regimen 0-1 Low Early ambulation 2 Moderate Order ONE of the following: *Sequential Compression Device (SCD) *Heparin 5000 units SQ BID 3-4 Higher Order ONE of the following medications: *Heparin 5000 units SQ TID *Enoxaparin/Lovenox 40 mg SQ daily (WT < 150 kg, CrCl > 30 mL/min) *Enoxaparin/Lovenox 30 mg SQ daily (WT < 150 kg, CrCl > 10-29 mL/min) *Enoxaparin/Lovenox 30 mg SQ BID (WT < 150 kg, CrCl > 30 mL/min) AND/OR *Sequential Compression Device (SCD) 5 or more Highest Order ONE of the following medications: *Heparin 5000 units SQ TID (Preferred with Epidurals) *Enoxaparin/Lovenox 40 mg SQ daily (WT < 150 kg, CrCl > 30 mL/min) *Enoxaparin/Lovenox 30 mg SQ daily (WT < 150 kg, CrCl > 10-29 mL/min) *Enoxaparin/Lovenox 30 mg SQ BID (WT < 150 kg, CrCl > 30 mL/min) AND *Sequential Compression Device (SCD) Assessment and Plan - Assessment (1) Chest pain, atypical Code(s): R07.89 - Other chest pain Status: Acute Plan: Admitted to chest pain center. Continue ACS protocol including 3 sets of EKGs and cardiac enzymes. Will be seen and evaluated by Dr. Edelmira Schroeder. Likely will proceed with myocardial perfusion testing in am, as patient drank caffeine today. Monitor on telemetry overnight. Verbalized understanding and agreeable to plan of care. Made aware multiple other complaints would be better suited for further evaluation in outpatient setting, such as infectious disease consult. (2) H/O: hypertension Code(s): Z86.79 - Personal history of other diseases of the circulatory system Status: Chronic Plan: Continue amlodipine. Continue to monitor. (3) H/O intravenous drug use in remission Code(s): Z87.898 - Personal history of other specified conditions Status: Chronic Plan: Reports currently in drug rehab, denies drug use in months. Follows with pain management for RA and fibromyalgia pain. Continue Morphine once updated in patient home medication list. Support provided around efforts of drug use cessation. (4) Tobacco abuse Code(s): Z72.0 - Tobacco use Status: Chronic Plan: Strongly encouraged and stressed the importance of tobacco cessation. Instructed to quit smoking. (5) H/O migraine Code(s): Z86.69 - Personal history of other diseases of the nervous system and sense organs Status: Acute Plan: Reassurance provided no acute findings to suggest carotid blockage and most likely related to migraine headaches. No current headache or migraine, continue to monitor. No acute assessment findings of concerned skin area of left cheek or neck. Continue to monitor. (6) H/O anxiety disorder Code(s): Z86.59 - Personal history of other mental and behavioral disorders Status: Chronic Plan: Continue Klonopin 1mg QID PRN as needed for anxiety. (7) Other chronic pain Code(s): G89.29 - Other chronic pain Status: Chronic Plan: Call out to patient's pharmacy to obtain accurate pain medication doses prior to reordering stated doses. Discussed with RN and will update RN once call returned from pharmacist to update home medication list.
--- NOTE | 2017-11-28 15:11 | ED ---
HPI General Chief Complaint: Chest Pain Stated Complaint: Medical Complaint Time Seen by Provider: 11/28/17 09:06 Source: patient Limitations: no limitations History of Present Illness HPI narrative: Patient is a 47-year-old female, past medical history significant for anxiety, COPD, hypertension, hepatitis C secondary to IV drug abuse, anxiety, chronic pain on a pain contract, who presents with complaint of chest pain that has been intermittent over the last several days radiates to her jaw and neck. She states that the pain is associated with dyspnea, as well as palpitations. This does not happen before. No cough, fever, chills, leg swelling. She also describes slight sharp pain on the left side of her face starting anterior to the ear and moving medial with chewing that has been ongoing intermittently for several months. She has looked at a picture of herself and her phone at this time and states that her face appears to be baseline. MD complaint: chest pain Complete Quality Measures for STEMI Alert Patients STEMI Alert: No Onset (ago): minute(s) Duration: intermittent Onset: during rest Pain location: substernal and left chest Severity: moderate Quality: tightness, heaviness and dull Pain radiation: neck and jaw/teeth Relieving factors: nothing Exacerbating factors: nothing Treatments prior to arrival chest pain: none Related Data On Oral Contraceptives: No Home Medications Medication Instructions Recorded Confirmed amlodipine [Norvasc] 5 mg PO HS 11/28/17 11/28/17 methadone [Dolophine] 10 mg PO TID PRN 11/28/17 11/28/17 metoprolol succinate [Toprol XL] 100 mg PO DAILY 11/28/17 11/28/17 morphine 250 mg PO TID 11/28/17 11/28/17 ondansetron HCl [Zofran] 4 mg PO PRN 11/28/17 11/28/17 promethazine [Phenergan] 25 mg IM PRN 11/28/17 11/28/17 spironolactone 50 mg PO DAILY 11/28/17 11/28/17 Allergies Allergy/AdvReac Type Severity Reaction Status Date / Time amoxicillin Allergy Severe Unverified 10/28/17 20:36 clavulanic acid Allergy Severe Unverified 10/28/17 20:36 levofloxacin Allergy Severe Unverified 10/28/17 20:36 metoclopramide Allergy Severe JAWS LOCK Unverified 10/28/17 20:36 UP penicillin G Allergy Severe ANAPHYLACTI Unverified 10/28/17 20:36 C prochlorperazine Allergy Severe JAWS LOCK Unverified 10/28/17 20:36 UP tetanus toxoid, adsorbed Allergy Severe MUSCLES Unverified 10/28/17 20:36 LOCKED UP vancomycin Allergy Severe COULDN'T Unverified 10/28/17 20:36 BREATH acetaminophen AdvReac Severe CONTRAINDICATED Unverified 10/28/17 20:36 DUE TO HEP C AND CIRROHSIS Review of Systems Except as stated in HPI: all other systems reviewed are negative Constitutional Denies chills and Denies fever(s) Eyes Denies blurry vision ENT Denies nasal congestion Cardiovascular Reports chest pain, Denies pedal edema and Denies lightheadedness Respiratory Denies cough and Reports dyspnea Gastrointestinal Denies abdominal pain Genitourinary Denies dysuria Musculoskeletal Denies back pain Integumentary/Breasts Denies rash Neurologic Denies dizziness and Denies headache(s) Psychiatric Denies confusion [facility] Medical History Medical History Acute on chronic pancreatitis (Acute) Anxiety (Acute) Arthritis, rheumatoid (Acute) COPD (chronic obstructive pulmonary disease) (Acute) CVA (cerebral vascular accident) (Acute) Cirrhosis (Acute) Dyslexia (Acute) Encephalopathy (Acute) H/O: hysterectomy (Acute) HTN (hypertension) (Acute) Hx of hepatitis C (Acute) Sinus pause (Acute) TMJ (dislocation of temporomandibular joint) (Acute) Social History Social History Substance History: Past History Smoking Status: Former smoker Tobacco Type: Cigarettes Packs Per Day: 0.5 (Decreased from 2 packs/day) Cigarettes Per Day: 10.0 Years Smoked: 30 Pack-Years: 15.00 How Often Do You Have a Drink Containing Alcohol: Monthly or less Hx Recent Travel: No Recent Travel in [facility] within the Last 8 Weeks: No Recent Out of Country Travel within the Last 8 Weeks: No Immunization History Tetanus Immunization: >5 Years Hx Influenza Vaccine This Season: No Exam Narrative Exam Narrative: GENERAL: Anxious but well-appearing female in no acute distress SKIN: Focused skin assessment warm/dry. HEAD: Atraumatic. Normocephalic. EYES: Pupils equal and round. No scleral icterus. No injection or drainage. ENT: No nasal bleeding or discharge. Mucous membranes pink and moist. Tenderness to palpation over the region of the trigeminal nerve NECK: Trachea midline. No JVD. CARDIOVASCULAR: Regular rate and rhythm. No murmur appreciated. RESPIRATORY: No accessory muscle use. Clear to auscultation. Breath sounds equal bilaterally. GASTROINTESTINAL: Abdomen soft, non-tender, nondistended. Hepatic and splenic margins not palpable. MUSCULOSKELETAL: No obvious deformities. No clubbing. No cyanosis. No edema. NEUROLOGICAL: Awake and alert. Left-sided facial droop which she states is her baseline. Motor grossly within normal limits. Normal speech. PSYCHIATRIC: Appropriate mood and affect; insight and judgment normal. Course Hospital Course: Patient was placed on shelter monitor and IV was established. She was given Ativan for her anxiety. Reevaluation(s) Reevaluation #1: Patient states that she felt better after her Ativan. She has not had any further chest pain while in the ED. Initial Documented Vital Signs Temperature 98.6 F 11/28/17 08:44 Pulse Rate 105 H 11/28/17 08:44 Respiratory Rate 18 11/28/17 08:44 Blood Pressure 192/107 H 11/28/17 08:44 Pulse Oximetry 93 L 11/28/17 08:44 Last Documented Vital Signs Temperature 98.6 F 11/28/17 08:44 Pulse Rate 63 11/28/17 13:00 Respiratory Rate 18 11/28/17 13:00 Blood Pressure 137/79 11/28/17 13:00 Pulse Oximetry 97 11/28/17 13:00 Medical Decision Making [facility] Narrative Medical decision making narrative: Patient is a 47-year-old female, past medical history significant for cirrhosis, previous CVA, anxiety and chronic pain, who presents with complaint of chest pain that has been intermittent. Initial EKG shows ST depressions concerning for possible ischemia. Chest x-ray and CT head unremarkable. Labs, including initial troponin, unremarkable. She has been put into the chest pain center for serial troponins to rule out acute myocardial infarction. Differential Diagnosis Differential Diagnosis: Different diagnosis includes but is not limited to coronary syndrome, embolism, trigeminal neuralgia, anxiety. Medical Records Medical records reviewed: Yes I reviewed the patient's medical records. Lab Data Lab results reviewed: Yes I reviewed the patient's lab results. Lab results narrative: Labs, including initial troponin, unremarkable. Result diagrams: 11/28/17 09:33 11/28/17 09:33 Lab Results 11/28/17 11/28/17 11/28/17 Range/Units 09:33 09:33 09:33 WBC 4.6 (4.0-11.0) th/mm3 RBC 5.80 H (4.00-5.30) mil/mm3 Hgb 13.5 (11.6-15.3) gm/dL Hct 40.9 (35.0-46.0) % MCV 70.5 L (80.0-100.0) fL MCH 23.3 L (27.0-34.0) pg MCHC 33.0 (32.0-36.0) % RDW 15.8 (11.6-17.2) % Plt Count 127 L (150-450) th/mm3 MPV 11.0 (7.0-11.0) fL Neut % (Auto) 35.9 (16.0-70.0) % Lymph % (Auto) 53.5 H (9.0-44.0) % [place] % (Auto) 6.4 (0.0-8.0) % Eos % (Auto) 3.3 (0.0-4.0) % Baso % (Auto) 0.9 (0.0-2.0) % Neut # (Auto) 1.6 L (1.8-7.7) th/mm3 Lymph # (Auto) 2.4 (1.0-4.8) th/mm3 [place] # (Auto) 0.3 (0.0-0.9) th/mm3 Eos # (Auto) 0.2 (0.0-0.4) th/mm3 Baso # (Auto) 0.0 (0.0-0.2) th/mm3 WBC Differential . Differential Comment Auto diff final PT 10.9 (9.8-11.6) sec INR 1.1 Ratio APTT 25.9 (24.3-30.1) sec Sodium 136 (136-145) meq/L Potassium 4.6 (3.5-5.1) meq/L Chloride 103 (98-107) meq/L Carbon Dioxide 31.2 (21.0-32.0) meq/L Anion Gap 2 L (5-15) meq/L BUN 8 (7-18) mg/dL Creatinine 1.00 (0.50-1.00) mg/dL Estimated GFR 59 L (>89) mL/min Random Glucose 134 H (74-106) mg/dL Calcium 9.0 (8.5-10.1) mg/dL Total Creatine Kinase (26-192) U/L Troponin I Less than 0.02 L (0.02-0.05) ng/mL 11/28/17 Range/Units 12:50 WBC (4.0-11.0) th/mm3 RBC (4.00-5.30) mil/mm3 Hgb (11.6-15.3) gm/dL Hct (35.0-46.0) % MCV (80.0-100.0) fL MCH (27.0-34.0) pg MCHC (32.0-36.0) % RDW (11.6-17.2) % Plt Count (150-450) th/mm3 MPV (7.0-11.0) fL Neut % (Auto) (16.0-70.0) % Lymph % (Auto) (9.0-44.0) % [place] % (Auto) (0.0-8.0) % Eos % (Auto) (0.0-4.0) % Baso % (Auto) (0.0-2.0) % Neut # (Auto) (1.8-7.7) th/mm3 Lymph # (Auto) (1.0-4.8) th/mm3 [place] # (Auto) (0.0-0.9) th/mm3 Eos # (Auto) (0.0-0.4) th/mm3 Baso # (Auto) (0.0-0.2) th/mm3 WBC Differential Differential Comment PT (9.8-11.6) sec INR Ratio APTT (24.3-30.1) sec Sodium (136-145) meq/L Potassium (3.5-5.1) meq/L Chloride (98-107) meq/L Carbon Dioxide (21.0-32.0) meq/L Anion Gap (5-15) meq/L BUN (7-18) mg/dL Creatinine (0.50-1.00) mg/dL Estimated GFR (>89) mL/min Random Glucose (74-106) mg/dL Calcium (8.5-10.1) mg/dL Total Creatine Kinase 43 (26-192) U/L Troponin I Less than 0.02 L (0.02-0.05) ng/mL Imaging Data Attestation: I personally reviewed and interpreted this imaging study as follows : My impression: No acute cardiopulmonary process. No large intracranial hemorrhage nor mass seen on CT head. Radiologist's impression: Chest X-Ray 11/28/17 09:26 CONCLUSION: No acute cardiopulmonary disease. Head CT 11/28/17 09:26 CONCLUSION: 1. Stable negative noncontrast head CT ECG Data EKG Prior to Arrival: No Attestation: I personally reviewed and interpreted this ECG as follows: (Sinus rhythm at a rate of [address] segment depressions in the anterior leads, with inverted T waves in V1.) Discharge Plan Discharge Disposition Patient Disposition: 30 Still Patient Discharge Condition Condition: Stable Discharge Details Diagnosis: Chest pain, rule out acute myocardial infarction, Left-sided trigeminal neuralgia Physicians Team ED Provider: Eileen Gill Primary Care Provider: Heather Crum, Attending Provider: Edelmira Schroeder Discharge Interventions Interventions: Vital Signs Last Done: 11/28/17 08:58 Status ED Status: Admitted Observation Patient
[2017-11-28] MEDS ORDERED: clonazePAM 1 MG Tablet PO ONE (16:30)
[2017-11-28 18:19] LABS: Creatine Kinase 26 U/L (26-192)
[2017-11-28] MEDS: amLODIPine 5 MG Tablet PO SCH (20:35)
[2017-11-28] MEDS ORDERED: Naloxone Inj 0.4 MG/ML Vial IV.PUSH PRN (20:41)
[2017-11-28] MEDS: Methadone 10 MG Tablet PO PRN (21:58)
--- NOTE | 2017-11-28 23:33 | ECG ---
Date Performed: 11/28/2017 Time Performed: 09:09:36 PTAGE: 47 years EKG: Sinus rhythm MINIMAL ST DEPRESSION BORDERLINE ECG PREVIOUS TRACING : 12/29/2016 12.55 Since the previous tracing, no significant change noted DOCTOR: Po Goldsmith Interpretating Date/Time 11/28/2017 23:32:56
--- NOTE | 2017-11-29 08:31 | P.PNCA ---
Subjective Interval history: No further chest discomfort. Requesting a neurology consult for intermittent headache with reported accompanying mood and behavior changes. Reports behavior/ mood changes include angry burst with yelling, denies this being her regular behavior. Tells me she does not want nor does she think the above symptoms are psych related, therefore does not want to see a psychiatrist. No suicidal ideation. Sleep in intervals. No headache overnight. Physical Exam Vital signs: Vital Signs 11/28/17 08:44 11/28/17 08:58 11/28/17 11:56 Temperature 98.6 F Pulse Rate 105 H 88 88 Respiratory Rate 18 18 Blood Pressure 192/107 H 176/100 H Pulse Oximetry 93 L 99 98 11/28/17 13:00 11/28/17 15:10 11/28/17 17:46 Temperature 99.1 F 98.1 F Pulse Rate 63 73 82 Respiratory Rate 18 16 16 Blood Pressure 137/79 118/64 131/74 Pulse Oximetry 97 99 99 11/28/17 20:00 11/28/17 22:30 11/29/17 00:00 Temperature 98.4 F 98.4 F Pulse Rate 98 H 65 83 Respiratory Rate 16 16 Blood Pressure 126/78 116/76 Pulse Oximetry 97 98 11/29/17 04:00 11/29/17 06:46 Temperature 98.2 F Pulse Rate 80 58 L Respiratory Rate 16 Blood Pressure 114/72 Pulse Oximetry 99 Intake & Output 11/28/17 11/29/17 11/29/17 18:59 06:59 18:59 Weight 72.575 kg - Constitutional no acute distress - Routine Respiratory Exam Present: CTA bilaterally. Absent: respiratory distress, rhonchi, wheezes, crackles - Routine Cardiovascular Exam Present: RRR. Absent: murmur, gallop, rubs - Routine Abdominal Exam Present: soft, normoactive bowel sounds - Routine Skin Exam Present: intact, warm - Routine Neurological Exam Present: alert, oriented X3 - Routine Psychiatric Exam Present: cooperative. Absent: normal affect, good insight Comments: Flat affect. Questionable insight and judgment. Assessment and Plan - Assessment (1) Chest pain, atypical Code(s): R07.89 - Other chest pain Status: Acute Plan: Ruled out with 3 sets of EKGs and cardiac enzymes. Proceed with Lexiscan this morning. If unremarkable, discharge home with follow with her PCP at [facility]. (2) H/O: hypertension Code(s): Z86.79 - Personal history of other diseases of the circulatory system Status: Chronic Plan: Continue amlodipine. Continue to monitor. Normotensive overnight. (3) H/O intravenous drug use in remission Code(s): Z87.898 - Personal history of other specified conditions Status: Chronic Plan: Reports currently in drug rehab, denies drug use in months. Follows with pain management for RA and fibromyalgia pain. Continue Morphine and Methadone as previously ordered by pain management MD. Support provided around efforts of drug use cessation. Discussed reported mood swigs likely from history of drug abuse and encouraged support groups and sponsors on regular basis. (4) Tobacco abuse Code(s): Z72.0 - Tobacco use Status: Chronic Plan: Strongly encouraged and stressed the importance of tobacco cessation. Instructed to quit smoking. (5) H/O migraine Code(s): Z86.69 - Personal history of other diseases of the nervous system and sense organs Status: Acute Plan: No current or reported headache or migraine overnight. Instructed to follow up with her PCP to determine if neurologist referral warranted. Made aware referral for neurologist not warranted and should be completed as outpatient. Verbalized understand, however expresses angry neurologist referral not given. (6) H/O anxiety disorder Code(s): Z86.59 - Personal history of other mental and behavioral disorders Status: Chronic Plan: Continue Klonopin 1mg QID PRN as needed for anxiety. (7) Other chronic pain Code(s): G89.29 - Other chronic pain Status: Chronic Plan: Continue Morphine ER, methadone, and tramadol as previously ordered. Verified dosing with patient's pharmacy.
[2017-11-29] MEDS: amLODIPine 5 MG Tablet PO SCH (08:47)
[2017-11-29] MEDS ORDERED: clonazePAM 1 MG Tablet PO SCH (09:00)
[2017-11-29] MEDS ORDERED: Aspirin 325 MG Tablet PO SCH (09:00)
[2017-11-29] MEDS ORDERED: Spironolactone 50 MG Tablet PO SCH (09:00)
[2017-11-29] MEDS ORDERED: Morphine Sulfate 60 MG SR Tablet PO SCH (09:00)
[2017-11-29] MEDS ORDERED: Regadenoson Inj 0.4 MG/5 ML Syringe IV.PUSH ONE (10:05)
--- NOTE | 2017-11-29 10:07 | ECG ---
Date Performed: 11/28/2017 Time Performed: 17:37:25 PTAGE: 47 years EKG: Sinus rhythm LEFT ATRIAL ENLARGEMENT MODERATE ST DEPRESSION ABNORMAL ECG Since PREVIOUS TRACING , no significant change noted DOCTOR: Edelmira Schroeder Interpretating Date/Time 11/29/2017 10:05:47
--- NOTE | 2017-11-29 11:46 | NM ---
EXAM DATE: 11/29/2017 11:33 AM EDT AGE/SEX: 47 years / Female INDICATIONS:Angina. . Left sided chest pain. CLINICAL DATA: This is the patient's initial encounter. Patient reports that signs and symptoms have been present for 2 days and indicates a pain score of 1/10. MEDICAL/SURGICAL HISTORY: Hypertension. Hepatitis C. Chronic obstructive pulmonary disease. H ysterectomy. COMPARISON: No prior exams available for comparison. DOSE: 8.2 mCi Tc 99m Myoview at rest 26.2 mCi [id number] at stress 0.4 mg Lexiscan STRESS SYMPTOMS: None. EJECTION FRACTION: >70 % TECHNIQUE: The patient underwent pharmacologic stress with infusion of prescribed dose. Continuous ECG tracing was monitored during stress. Gated SPECT imaging was performed after stress and conventi onal SPECT imaging was performed at rest. The examination was performed on a SPECT/CT scanner, both attenuation and non-corrected datasets were reviewed. FINDINGS: Distribution: The maximum perfused segment at stress is in the anterior wall. Perfusion Study: The pattern of perfusion at stress is within normal limits. Gated Study: There are intact wall motion and wall thickening without hypokinetic or dyskinetic segm ents. The ejection fraction is calculated at >70%. RISK CATEGORY: Low (<1% Annual Motality Rate) CONCLUSION: 1. No fixed or reversible wall defect to suggest ischemia or infarction. 2. Normal wall motion and calculated ejection fraction. Electronically signed by: Feng Tracy MD 11/29/2017 11:45 AM EDT
[2017-11-29] MEDS: Methadone 10 MG Tablet PO PRN (12:32)
--- NOTE | 2017-11-29 16:07 | TR ---
Date Performed: 11/29/2017 Time Performed: 09:55:42 DOCTOR: Edelmira Schroeder DRUG LIST: CLINICAL HISTORY: REASON FOR TEST: REASON FOR ENDING: OBSERVATION: CONCLUSION: Lexiscan stress test was performed under standard four minute protocol. Radionuclid e was injected one minute prior to ending the test. No electrocardiographic abormalities were present to suggest ischemia. Nuclear imaging and interpretation are pending. COMMENTS: no ischemia
== END 2017-11-29 01:50 | disposition home or self-care (01) ==
LOC: NEDA 08:42 → NEPC 08:42 → NEPGCP 08:42
PROVIDERS: ADMIT Internal Medicine Interventional Cardiology; ATTEND Internal Medicine Interventional Cardiology